=== PATIENT | male | born 1995 | race Two or more races ===

== ENCOUNTER 2019-03-17 07:35 | Emergency (ER) | payer SELFPAY ==
--- NOTE | 2019-03-17 07:52 | EDM.PDOC ---
ED HPI GENERAL MEDICAL PROBLEM - General Chief Complaint: Genitourinary Problem Stated Complaint: KIDNEY STONE Time Seen by Provider: 03/17/19 07:52 - History of Present Illness INITIAL COMMENTS - FREE TEXT/NARRATIVE: 23-year-old male presents emergency room with what he thinks is a kidney stone. Patient was diagnosed with kidney stones in [place]. He has had 2 of them there. His pain started yesterday and is getting worse he has right flank pain. The pain is worse in the suprapubic area and shoots into his right testicle. He' s not had associated nausea vomiting no diarrhea no constipation. Has not had any fevers or chills. He's been drinking lots of fluids but his urine has been been darker than normal. Unfortunately I cannot find his records from [place]. - Related Data Allergies Allergy/AdvReac Type Severity Reaction Status Date / Time No Known Allergies Allergy Verified 03/17/19 07:41 Home Meds: Home Meds Acetaminophen/HYDROcodone [[place] 325-5 MG] 1 - 2 tab PO Q6H PRN #18 tablet 03/17 [Rx] Past Medical History Genitourinary History: Reports: Renal Calculus Social & Family History - Family History Family Medical History: Noncontributory - Caffeine Use Caffeine Use: Reports: Coffee, Energy Drinks - Recreational Drug Use Recreational Drug Use: No ED ROS GENERAL - Review of Systems Review Of Systems: See Below Constitutional: Reports: No Symptoms HEENT: Reports: No Symptoms Respiratory: Reports: No Symptoms Cardiovascular: Reports: No Symptoms GI/Abdominal: Reports: Abdominal Pain. Denies: No Symptoms : Reports: Flank Pain, Hematuria (His urine is much darker than normal). Denies: Discharge, Dysuria, Frequency Musculoskeletal: Reports: No Symptoms Neurological: Reports: No Symptoms ED EXAM, GI/ABD - Physical Exam Exam: See Below Exam Limited By: No Limitations General Appearance: Alert, Mild Distress (From the discomfort) Respiratory/Chest: No Respiratory Distress, Lungs Clear, Normal Breath Sounds Cardiovascular: Regular Rate, Rhythm, No Edema, No Murmur GI/Abdominal Exam: Normal Bowel Sounds, Soft, Other (He has vague right-sided discomfort not worsened with palpation however he has suprapubic discomfort that is very tender with palpation) (Male) Exam: No Hernia, Normal Inspection, Scrotum Tenderness (R). No: Scrotal Swelling, Suprapubic Fullness, Testicular Mass Back Exam: Normal Inspection. No: CVA Tenderness (L), CVA Tenderness (R) Extremities: Normal Inspection Course - Vital Signs Last Recorded V/S: Last Vital Signs Temp 35.9 C 03/17/19 07:38 Pulse 63 03/17/19 07:38 Resp 16 03/17/19 07:38 BP 133/72 03/17/19 07:38 Pulse Ox 100 03/17/19 07:38 - Orders/Labs/Meds Orders: Active Orders 24 hr Category Date Time Status Abdomen Pelvis wo Cont [CT] Stat Exams 03/17/19 08:22 Taken Lactated Ringers [Ringers, Lactated] 1,000 ml Med 03/17/19 08:30 Active IV ASDIRECTED Medication Orders Lactated Ringer's (Ringers, Lactated) 1,000 mls @ 125 mls/hr IV ASDIRECTED SUSHIL Last Admin: 03/17/19 08:38 Dose: 125 mls/hr Labs: Laboratory Tests 03/17/19 03/17/19 03/17/19 Range/Units 07:50 08:36 08:36 WBC 4.21 L (4.23-9.07) K/mm3 RBC 5.47 (4.63-6.08) M/mm3 Hgb 15.6 (13.7-17.5) gm/L Hct 45.5 (40.1-51.0) % MCV 83.2 (79.0-92.2) fl MCH 28.5 (25.7-32.2) pg MCHC 34.3 (32.2-35.5) g/dl RDW Std Deviation 38.1 (35.1-43.9) fL Plt Count 178 (163-337) K/mm3 MPV 10.4 (9.4-12.3) fl Neutrophils % (Manual) 57 (40-60) % Band Neutrophils % 0 (0-10) % Lymphocytes % (Manual) 39 (20-40) % Atypical Lymphs % 0 % Monocytes % (Manual) 2 (2-10) % Eosinophils % (Manual) 1 (0.8-7.0) % Basophils % (Manual) 1 (0.2-1.2) Platelet Estimate Adequate RBC Morph Comment Normal Sodium 140 (136-145) mEq/L Potassium 4.2 (3.5-5.1) mEq/L Chloride 107 (98-107) mEq/L Carbon Dioxide 29 (21-32) mEq/L Anion Gap 8.2 (5-15) BUN 18 (7-18) mg/dL Creatinine 1.0 (0.7-1.3) mg/dL Est Cr Clr Drug Dosing 113.91 mL/min Estimated GFR (MDRD) > 60 (>60) mL/min BUN/Creatinine Ratio 18.0 (14-18) Glucose 97 (74-106) mg/dL Calcium 9.2 (8.5-10.1) mg/dL Total Bilirubin 0.5 (0.2-1.0) mg/dL AST 15 (15-37) U/L ALT 26 (16-63) U/L Alkaline Phosphatase 58 (46-116) U/L Total Protein 7.4 (6.4-8.2) g/dl Albumin 4.2 (3.4-5.0) g/dl Globulin 3.2 gm/dL Albumin/Globulin Ratio 1.3 (1-2) Urine Color Dark yellow (Yellow) Urine Appearance Slt cloudy H (Clear) Urine pH 6.0 (5.0-8.0) Ur Specific [place] > or = 1.030 (1.005-1.030) Urine Protein 1+ H (Negative) Urine Glucose (UA) Negative (Negative) Urine Ketones Negative (Negative) Urine Occult Blood 3+ H (Negative) Urine Nitrite Negative (Negative) Urine Bilirubin 1+ H (Negative) Urine Urobilinogen 0.2 (0.2-1.0) Ur Leukocyte Esterase Negative (Negative) Urine RBC >100 H (0-5) /hpf Urine WBC Not seen (0-5) /hpf Ur Epithelial Cells Not seen (0-5) /hpf Urine Bacteria Not seen (FEW) /hpf Urine Mucus Not seen (FEW) /hpf Meds: Medications Generic Name Dose Route Start Last Admin Trade Name Freq PRN Reason Stop Dose Admin Lactated Ringer's 1,000 mls @ 125 mls/hr 03/17/19 08:30 03/17/19 08:38 Ringers, Lactated IV 125 mls/hr ASDIRECTED SUSHIL Administration Discontinued Medications Generic Name Dose Route Start Last Admin Trade Name Freq PRN Reason Stop Dose Admin Ketorolac Tromethamine 15 mg 03/17/19 08:20 03/17/19 08:42 Toradol IVPUSH 03/17/19 08:21 15 mg ONETIME ONE Administration Ondansetron HCl 4 mg 03/17/19 08:20 03/17/19 08:40 Zofran IVPUSH 03/17/19 08:21 4 mg ONETIME ONE Administration - Re-Assessments/Exams Free Text/Narrative Re-Assessment/Exam: 03/17/19 08:31 With the bladder tenderness morning about the possibility of infection I cannot find a prior records from [place] will obtain unenhanced CT as well as labs starting IV and give him some Toradol. 03/17/19 09:23 Urinalysis does not suggest infectious process chemistries are normal. Unenhanced CT shows a 2 mm stone at the right distal UVJ no significant hydronephrosis. Discussed the findings of this with the patient and I strongly recommended that he follow-up with a local physician here early next week for recheck with no significant hydronephrosis or hydroureter and he gets essential that if he does not collect the stone strong consideration should you given to re-CAT scanning to make sure this is not a chronic retained stone. Departure - Departure Time of Disposition: 09:34 Disposition: Home, Self-Care 01 Clinical Impression: Kidney stone - Discharge Information Prescriptions: Acetaminophen/HYDROcodone [[place] 325-5 MG] 1 - 2 tab PO Q6H PRN #18 tablet PRN Reason: Pain Referrals: PCP,None [Primary Care Provider] - Forms: ED Department Discharge Additional Instructions: Return to the emergency room with any questions problems worsening symptoms. Follow-up with the Hospital clinic early next week for recheck call today to schedule an appointment [phone]. Tylenol or ibuprofen as needed for discomfort. I have given you a prescription for [place], or hydrocodone, take one or 2 every 6 hours as needed for pain however allow 12 hours after using this medication before driving or returning to work. Strain your urine if you catch the stone take it to the doctor's office for stone analysis if this has not been done in the past. If you do not passed the stone discuss with your provider rechecking CT scan to be sure you actually passed the stone. - My Orders Last 24 Hours: My Active Orders 03/17/19 08:22 Abdomen Pelvis wo Cont [CT] Stat 03/17/19 08:30 Lactated Ringers [Ringers, Lactated] 1,000 ml IV ASDIRECTED - Assessment/Plan Last 24 Hours: My Active Orders 03/17/19 08:22 Abdomen Pelvis wo Cont [CT] Stat 03/17/19 08:30 Lactated Ringers [Ringers, Lactated] 1,000 ml IV ASDIRECTED
[2019-03-17] MEDS ORDERED: Ketorolac 15 MG/ML SDV IVPUSH ONE (08:20)
[2019-03-17] MEDS ORDERED: Ondansetron 4 MG/2 ML SDV IVPUSH ONE (08:20)
[2019-03-17] MEDS ORDERED: Lactated Ringers 1,000 ML IV SCH (08:30)
== END 2019-03-17 09:55 | disposition home or self-care (01) ==
LOC: JD.ED 07:35
DX: N20.0 Calculus of kidney (principal)
CPT/HCPCS: 36415; 74176; 80053; 81001; 85007; 85027; 96374; 96375; 99284; J1885; J2405; J7120; 99283

== ENCOUNTER 2019-03-21 23:45 | Emergency (ER) | payer SELFPAY ==
--- NOTE | 2019-03-22 01:03 | EDM.PDOC ---
ED HPI GENERAL MEDICAL PROBLEM - General Chief Complaint: Flank Pain Stated Complaint: KIDNEY STONE Time Seen by Provider: 03/22/19 01:02 - History of Present Illness INITIAL COMMENTS - FREE TEXT/NARRATIVE: 23-year-old male seen by me last Thursday with a kidney stone returns as he is out of pain medication. Has not been given to the primary care clinic yet. He denies fevers chills otherwise doing okay. No nausea no vomiting. Flank Pain Score (Numeric/FACES): 10 - Related Data Allergies Allergy/AdvReac Type Severity Reaction Status Date / Time No Known Allergies Allergy Verified 03/17/19 07:41 Home Meds: Home Meds Acetaminophen/HYDROcodone [[place] 325-5 MG] 1 - 2 tab PO Q6H PRN #18 tablet 03/17 [Rx] Acetaminophen [Tylenol] 650 mg PO ONCALL PRN 03/21/19 [History] Acetaminophen/HYDROcodone [[place] 325-5 MG] 1 - 2 tab PO Q6H PRN #20 tablet 03/22 [Rx] Tamsulosin HCl [Flomax] 0.4 mg PO DAILY #7 capsule 03/22/19 [Rx] Past Medical History Genitourinary History: Reports: Renal Calculus Social & Family History - Family History Family Medical History: Noncontributory - Caffeine Use Caffeine Use: Reports: Coffee, Energy Drinks ED ROS GENERAL - Review of Systems Review Of Systems: See Below Constitutional: Reports: No Symptoms Respiratory: Reports: No Symptoms Cardiovascular: Reports: No Symptoms Endocrine: Reports: No Symptoms GI/Abdominal: Reports: Abdominal Pain : Reports: No Symptoms ED EXAM, GI/ABD - Physical Exam Exam: See Below Exam Limited By: No Limitations General Appearance: Alert, No Apparent Distress Respiratory/Chest: No Respiratory Distress, Lungs Clear, Normal Breath Sounds Cardiovascular: Regular Rate, Rhythm, No Edema, No Murmur GI/Abdominal Exam: Normal Bowel Sounds, Soft, Other (He has some discomfort but this is minimal) Course - Vital Signs Last Recorded V/S: Last Vital Signs Temp 36.0 C 03/21/19 23:57 Pulse 77 03/21/19 23:57 Resp 18 03/21/19 23:57 BP 132/83 03/21/19 23:57 Pulse Ox 96 03/21/19 23:57 - Orders/Labs/Meds Labs: Laboratory Tests 03/21/19 03/22/19 Range/Units 23:58 01:14 Sodium 140 (136-145) mEq/L Potassium 3.8 (3.5-5.1) mEq/L Chloride 105 (98-107) mEq/L Carbon Dioxide 27 (21-32) mEq/L Anion Gap 11.8 (5-15) BUN 25 H (7-18) mg/dL Creatinine 1.1 (0.7-1.3) mg/dL Est Cr Clr Drug Dosing 103.55 mL/min Estimated GFR (MDRD) > 60 (>60) mL/min BUN/Creatinine Ratio 22.7 H (14-18) Glucose 115 H (74-106) mg/dL Calcium 9.2 (8.5-10.1) mg/dL Urine Color Yellow (Yellow) Urine Appearance Slt cloudy H (Clear) Urine pH 7.0 (5.0-8.0) Ur Specific [place] > or = 1.030 (1.005-1.030) Urine Protein 3+ H (Negative) Urine Glucose (UA) Negative (Negative) Urine Ketones Trace H (Negative) Urine Occult Blood 3+ H (Negative) Urine Nitrite Negative (Negative) Urine Bilirubin Negative (Negative) Urine Urobilinogen 0.2 (0.2-1.0) Ur Leukocyte Esterase Negative (Negative) Urine RBC >100 H (0-5) /hpf Urine WBC 0-5 (0-5) /hpf Ur Squamous Epith Cells 0-5 (0-5) /hpf Ur Renal Epithelial Cell 0-5 (0-5) /hpf Amorphous Sediment Moderate H (NOT SEEN) /hpf Urine Bacteria Moderate H (FEW) /hpf Hyaline Casts 0-5 (0-5) /lpf Urine Mucus Many H (FEW) /hpf Urinalysis Comment Meds: Medications Discontinued Medications Generic Name Dose Route Start Last Admin Trade Name Freq PRN Reason Stop Dose Admin Hydrocodone Bitart/Acetaminophen 2 tab 03/22/19 01:04 03/22/19 01:14 [place] 325-5 Mg PO 03/22/19 01:05 2 tab ONETIME ONE Administration - Re-Assessments/Exams Free Text/Narrative Re-Assessment/Exam: 03/22/19 03:08 Labs rechecked no sign of significantly worsening renal failure no signs of a urinary tract infection patients get a little frustrated that he hasn't passed. Departure - Departure Time of Disposition: 03:08 Disposition: Home, Self-Care 01 Clinical Impression: Kidney stone - Discharge Information Prescriptions: Acetaminophen/HYDROcodone [[place] 325-5 MG] 1 - 2 tab PO Q6H PRN #20 tablet PRN Reason: Pain Tamsulosin HCl [Flomax] 0.4 mg PO DAILY #7 capsule Referrals: PCP,None [Primary Care Provider] - Forms: ED Department Discharge Additional Instructions: Return to emergency room if any questions or problems follow-up with your regular provider in one week or follow-up with urology in one week. Take the medications as directed
[2019-03-22] MEDS ORDERED: Acetaminophen/HYDROcodone 325-5 MG Tab PO ONE (01:04)
== END 2019-03-22 03:27 | disposition home or self-care (01) ==
LOC: JD.ED 23:45
DX: N20.0 Calculus of kidney (principal)
CPT/HCPCS: 36415; 80048; 81001; 99284; A9270; 99283